=== PATIENT | female | born 1995 | race Caucasian/White ===

== ENCOUNTER 2019-02-06 12:50 | Emergency (ER) | payer BC, OTHER ==
--- NOTE | 2019-02-06 15:06 | RAD REPORT ---
EXAM DESCRIPTION: RAD - Shoulder Left 2 View - 02/06/2019 2:55 pm CLINICAL HISTORY: Fall, left shoulder pain COMPARISON: None. TECHNIQUE: Internal and external rotation views of the left shoulder were obtained. FINDINGS: There is no fracture or dislocation. AC joint is normal in appearance. No acute or suspici ous findings. IMPRESSION: Negative two-view left shoulder examination.
--- NOTE | 2019-02-06 15:07 | RAD REPORT ---
EXAM DESCRIPTION: RAD - Forearm Right - 02/06/2019 2:55 pm CLINICAL HISTORY: Fall, arm pain COMPARISON: None. FINDINGS: No fracture is identified. There is no dislocation or periosteal reaction noted. No foreign body or other soft tissue abnormality. IMPRESSION: Negative right forearm examination.
--- NOTE | 2019-02-06 15:29 | ER ---
Nurse's Notes [facility] Name: Hanna Olmos Age: 23 yrs Sex: Female : 1995 Arrival Date: 02/06/2019 Time: 12:52 Bed 26 Private MD: Diagnosis: Other sprain of left shoulder joint;Arm Strain Presentation: 02/06 13:00 Presenting complaint: Patient states: yesterday climbed in a window and fell while ch climbing in and hit the bath tub. pain to abel shoulders and elbows. c/o limited rom to R shoulder. Transition of care: patient was not received from another setting of care. Onset of symptoms was February 05, 2019 at 23:00. Risk Assessment: Do you want to hurt yourself or someone else? Patient reports no desire to harm self or others. Initial Sepsis Screen: Does the patient meet any 2 criteria? No. Patient's initial sepsis screen is negative. Does the patient have a suspected source of infection? No. Patient's initial sepsis screen is negative. Care prior to arrival: None. 13:00 Method Of Arrival: Ambulatory 13:00 Acuity: MJ 4 ch Triage Assessment: 13:02 General: Appears in no apparent distress. comfortable, Behavior is calm, cooperative, ch appropriate for age. Pain: Complains of pain in anterior aspect of right shoulder, posterior aspect of right shoulder, anterior aspect of left shoulder and posterior aspect of left shoulder Pain currently is 6 out of 10 on a pain scale. 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 - Social history:: Smoking status: Patient/guardian denies using tobacco. - Ebola Screening: : Patient negative for fever greater than or equal to 101.5 degrees Fahrenheit, and additional compatible Ebola Virus Disease symptoms Patient denies exposure to infectious person Patient denies travel to an Ebola-affected area in the 21 days before illness onset No symptoms or risks identified at this time. Screenin:33 Abuse screen: Denies threats or abuse. Denies injuries from another. Nutritional mg2 screening: No deficits noted. Tuberculosis screening: No symptoms or risk factors identified. Fall Risk Fall in past 12 months (25 points). Assessment: 13:32 General: Appears in no apparent distress. comfortable, Behavior is calm, cooperative. mg2 Pain: Complains of pain in right arm and posterior aspect of left shoulder. Neuro: Level of Consciousness is awake, alert, obeys commands, Oriented to person, place, time, situation. Cardiovascular: Capillary refill < 3 seconds Patient's skin is warm and dry. Respiratory: Airway is patent Respiratory effort is even, unlabored, Respiratory pattern is regular, symmetrical. GI: No signs and/or symptoms were reported involving the gastrointestinal system. : No signs and/or symptoms were reported regarding the genitourinary system. EENT: No signs and/or symptoms were reported regarding the EENT system. Derm: Skin is intact, is healthy with good turgor, Skin is pink, warm \T\ dry. normal. Musculoskeletal: Circulation, motion, and sensation intact. Capillary refill < 3 seconds, Range of motion: limited in left shoulder and right elbow. Vital Signs: 13:02 BP 130 / 90; Pulse 90; Resp 16; Temp 97.8; Pulse Ox 99% on R/A; Weight 68.04 kg; Height ch 5 ft. 4 in. (162.56 cm); Pain 5/10; 14:53 BP 124 / 97; Pulse 94; Resp 18; Pulse Ox 100% on R/A; mg2 15:36 BP 126 / 78; Pulse 90; Resp 18; Temp 98; Pulse Ox 100% on R/A; Pain 2/10; mg2 13:02 Body Mass Index 25.75 (68.04 kg, 162.56 cm) ED Course: 12:52 Patient arrived in ED. as 13:02 Triage completed. ch 13:04 Arm band placed on left wrist. Patient placed in an exam room, on a stretcher. 13:19 Joaquin Fong, GORDON is Primary Nurse. mg2 13:34 Patient has correct armband on for positive identification. mg2 13:34 No provider procedures requiring assistance completed. Patient did not have IV access mg2 during this emergency room visit. 13:38 [facility] 13:38 Byron Angel MD is Attending Physician. jmm 14:55 Forearm Right XRAY In Process Unspecified. EDMS 14:56 Shoulder Left (2 View) XRAY In Process Unspecified. EDMS 15:26 Al Wells MD is Referral Physician. mathew Administered Medications: No medications were administered Outcome: 15:28 Discharge ordered by . [facility] 15:37 Discharged to home ambulatory, with family. mg2 15:37 Condition: good 15:37 Discharge instructions given to patient, family, Instructed on discharge instructions, follow up and referral plans. medication usage, Demonstrated understanding of instructions, follow-up care, medications, Prescriptions given X 1. 15:37 Patient left the ED. mg2 Signatures: Dispatcher [employer] Ofelia Pompa, RN RN Dell Saul PA PA jmm Martinez, Amelia as Gardose, Michele, GORDON RN mg2 Corrections: (The following items were deleted from the chart) 13:04 13:02 Home Meds: None; [facility] 13:34 13:33 Fall Risk mg2 mg2
--- NOTE | 2019-02-06 15:29 | EDPHYS ---
Physician Documentation [facility] Name: Hanna Olmos Age: 23 yrs Sex: Female : 1995 Arrival Date: 02/06/2019 Time: 12:52 Bed 26 Private MD: ED Physician Byrno Angel HPI: 02/06 13:52 This 23 yrs old Female presents to ER via Ambulatory with complaints of Fall jmm Injury, Shoulder Pain, Arm Pain. 13:52 Details of fall: The patient fell from a height. Onset: The symptoms/episode jmm began/occurred acutely, at 00:30. The patient has not experienced similar symptoms in the past. This is a 23 year old female with no chronic medical conditions that presents to the ED with complaints of left shoulder pain and right forearm pain after falling into a bathroom from the outside window. Denies head injury, denies neck injury. . 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 - Social history:: Smoking status: Patient/guardian denies using tobacco. - Ebola Screening: : Patient negative for fever greater than or equal to 101.5 degrees Fahrenheit, and additional compatible Ebola Virus Disease symptoms Patient denies exposure to infectious person Patient denies travel to an Ebola-affected area in the 21 days before illness onset No symptoms or risks identified at this time. ROS: 13:52 Constitutional: Negative for fever, chills, and weight loss, Cardiovascular: Negative jmm for chest pain, palpitations, and edema, Respiratory: Negative for shortness of breath, cough, wheezing, and pleuritic chest pain. 13:52 Neck: Negative for pain with movement, pain at rest. 13:52 MS/extremity: Positive for injury or acute deformity, pain. 13:52 Neuro: Negative for headache. 13:52 All other systems are negative. Exam: 13:52 Constitutional: This is a well developed, well nourished patient who is awake, alert, jmm and in no acute distress. Head/Face: atraumatic. Eyes: EOMI, no conjunctival erythema appreciated ENT: Moist Mucus Membranes Neck: Trachea midline, Supple Chest/axilla: Normal chest wall appearance and motion. Cardiovascular: Regular rate and rhythm. No edema appreciated Respiratory: Normal respirations, no respiratory distress appreciated Abdomen/GI: Non distended, soft Back: Normal ROM Skin: General appearance color normal 13:52 Musculoskeletal/extremity: right proximal forearm TTP, full right laboratory immunologist, full radial pulse, compartments are soft, FROM appreciated against resistance. NVI. Left posterior shoulder is TTP, full left laboratory immunologist strength, compartments are soft, FROM appreciated against resistance, NVI. . 13:52 Skin: Appearance: Color: normal in color. 13:52 Neuro: Orientation: is normal, Mentation: is normal, Memory: is normal. 13:52 Psych: Behavior/mood is pleasant, cooperative. Vital Signs: 13:02 BP 130 / 90; Pulse 90; Resp 16; Temp 97.8; Pulse Ox 99% on R/A; Weight 68.04 kg; Height ch 5 ft. 4 in. (162.56 cm); Pain 5/10; 14:53 BP 124 / 97; Pulse 94; Resp 18; Pulse Ox 100% on R/A; mg2 15:36 BP 126 / 78; Pulse 90; Resp 18; Temp 98; Pulse Ox 100% on R/A; Pain 2/10; mg2 13:02 Body Mass Index 25.75 (68.04 kg, 162.56 cm) ch MDM: 13:51 Patient medically screened. [facility] 15:25 Data reviewed: vital signs, nurses notes. Counseling: I had a detailed discussion with mathew the patient and/or guardian regarding: the historical points, exam findings, and any diagnostic results supporting the discharge/admit diagnosis, radiology results, the need for outpatient follow up, to return to the emergency department if symptoms worsen or persist or if there are any questions or concerns that arise at home. 02/06 13:52 Order name: Forearm Right XRAY; Complete Time: 15:22 [facility] 02/06 13:52 Order name: Shoulder Left (2 View) XRAY; Complete Time: 15:22 [facility] Administered Medications: No medications were administered Disposition: 17:21 Co-signature as Attending Physician, Byron Angel MD. Disposition: 02/06/19 15:28 Discharged to Home. Impression: Other sprain of left shoulder joint, Arm Strain. - Condition is Stable. - Discharge Instructions: Muscle Strain, Shoulder Sprain. - Prescriptions for orphenadrine citrate 100 mg Oral Tablet Sustained Release - take 1 tablet by ORAL route 2 times per day As needed; 20 tablet. - Medication Reconciliation Form, Thank You Letter, Antibiotic Education, Prescription Opioid Use form. - Follow up: Al Wells MD; When: As needed; Reason: Recheck today's complaints, Continuance of care, Re-evaluation by your physician. Signatures: Dispatcher [employer] EDOfelia Kwong RN RN Dell Saul PA PA jmm Starr, Gregory, MD MD Joaquin Fong RN RN mg2 Corrections: (The following items were deleted from the chart) 13:04 13:02 Home Meds: None; [facility] 15:37 15:28 02/06/2019 15:28 Discharged to Home. Impression: Other sprain of left shoulder mg2 joint; Arm Strain. Condition is Stable. Forms are Medication Reconciliation Form, Thank You Letter, Antibiotic Education, Prescription Opioid Use. Follow up: Al Wells; When: As needed; Reason: Recheck today's complaints, Continuance of care, Re-evaluation by your physician. mathew
[2019-02-06 16:36] VITALS: O2SAT 100
[2019-02-06 16:38] VITALS: BP 126/78; TEMP 98
== END 2019-02-06 15:37 | disposition home or self-care (01) ==
LOC: ER 12:50
DX: S43.492A Other sprain of left shoulder joint, initial encounter (principal); S56.911A Strain of unspecified muscles, fascia and tendons at forearm level, right arm, initial encounter; W13.4XXA Fall from, out of or through window, initial encounter; Y93.89 Activity, other specified; Y92.9 Unspecified place or not applicable
CPT/HCPCS: 99283

== ENCOUNTER 2021-01-14 15:23 | Emergency (ER) | payer BC ==
[2021-01-14] MEDS ORDERED: IBUPROFEN 400 MG TAB ONE (15:59)
[2021-01-14] MEDS ORDERED: IBUPROFEN 200 MG TAB PO ONE (15:59)
[2021-01-14 16:06] LABS: Absolute Lymphocytes (CBC) 1.1 K/uL (0.7-4.9); Basophils % 0.1 % (0-1.3); Hematocrit 42.2 % (36.0-45.0); Lymphocytes % 9.7 % (15.3-44.8); MPV 7.9 fL (7.6-11.3); RBC Red Blood Cell Count 4.89 M/uL (3.86-4.86)
[2021-01-14 16:18] LABS: Potassium 3.8 mmol/L (3.5-5.1)
--- NOTE | 2021-01-14 16:27 | RAD REPORT ---
EXAM DESCRIPTION: RAD - Wrist Right 3 View - 01/14/2021 4:08 pm CLINICAL HISTORY: Right wrist pain FINDINGS: No fracture or dislocation is seen. If the patient continues to have symptoms to suggest a n occult fracture then a followup plain film series in 7 days would be recommended.
--- NOTE | 2021-01-14 17:36 | ER ---
Nurse's Notes [facility] Name: Hanna Olmos Age: 25 yrs Sex: Female : 1995 Arrival Date: 01/14/2021 Time: 15:23 Bed 11 [facility] MD: Diagnosis: Cellulitis of right upper limb Presentation: 01/14 15:29 Chief complaint: Patient states: "my wrist is hurting, I woke up with it hurting on aa5 Sunday". Pt denies injury to wrist. Coronavirus screen: At this time, the client does not indicate any symptoms associated with coronavirus-19. Ebola Screen: Patient negative for fever greater than or equal to 101.5 degrees Fahrenheit, and additional compatible Ebola Virus Disease symptoms. Initial Sepsis Screen: Does the patient meet any 2 criteria? HR > 90 bpm. Does the patient have a suspected source of infection? No. Patient's initial sepsis screen is negative. Risk Assessment: Do you want to hurt yourself or someone else? Patient reports no desire to harm self or others. Onset of symptoms was December 2020. 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 - Social history:: Smoking status: Patient denies any tobacco usage or history of. Screenin:15 Abuse screen: Denies threats or abuse. Nutritional screening: No deficits noted. vg1 Tuberculosis screening: No symptoms or risk factors identified. Fall Risk No fall in past 12 months (0 pts). No secondary diagnosis (0 pts). IV access (20 points). Ambulatory Aid- None/Bed Rest/Nurse Assist (0 pts). Gait- Normal/Bed Rest/Wheelchair (0 pts) Mental Status- Oriented to own ability (0 pts). Total Sharma Fall Scale indicates No Risk (0-24 pts). Assessment: 17:13 General: Appears in no apparent distress. comfortable, Behavior is calm, cooperative. vg1 Pain: Complains of pain in Right wrist/hand Pain currently is 2 out of 10 on a pain scale. at worst was 8 out of 10 on a pain scale. Pain began Sunday01/10/21. Neuro: Level of Consciousness is awake, alert, obeys commands, Oriented to person, place, time, situation. Cardiovascular: Patient's skin is warm and dry. Pulses are palpable in right radial artery and left radial artery. Respiratory: Airway is patent Respiratory effort is even, unlabored. GI: No signs and/or symptoms were reported involving the gastrointestinal system. : No signs and/or symptoms were reported regarding the genitourinary system. EENT: No signs and/or symptoms were reported regarding the EENT system. Derm: Skin is intact, Skin is red, Right thumb. Musculoskeletal: Swelling present in Right thumb/wrist. 17:36 Reassessment: pt up for d/c; awaiting for IV fluids to complete. vg1 18:19 Reassessment: Patient appears in no apparent distress at this time. Patient and/or vg1 family updated on plan of care and expected duration. Pain level reassessed. Patient is alert, oriented x 3, equal unlabored respirations, skin warm/dry/pink. Vital Signs: 15:29 BP 126 / 80; Pulse 120; Resp 18 S; Temp 100.7(TE); Pulse Ox 99% on R/A; Weight 69.4 kg; aa5 Height 5 ft. 5 in. (165.10 cm) (R); Pain 8/10; 17:13 BP 115 / 78; Pulse 115; Resp 16; Temp 99.8(O); Pulse Ox 99% ; vg1 18:18 BP 112 / 67; Pulse 89; Resp 16; Pulse Ox 98% ; vg1 15:29 Body Mass Index 25.46 (69.40 kg, 165.10 cm) aa5 ED Course: 15:23 Patient arrived in ED. am2 15:29 Arm band placed on. aa5 15:31 Triage completed. aa5 15:32 Ami Wood FNP-C [facility]. kb 15:32 Mil Chakraborty MD is Attending Physician. kb 15:35 First set of blood cultures drawn by me. aa5 15:45 Second set of blood cultures drawn by me. Initial lab(s) drawn, by me, sent to lab. aa5 Inserted saline lock: 20 gauge in right antecubital area, using aseptic technique. Blood collected. 16:08 Wrist Right 3 View XRAY In Process Unspecified. EDMS 17:08 Ariana Merchant, RN is Primary Nurse. vg1 17:15 Patient has correct armband on for positive identification. Call light in reach. vg1 18:19 No provider procedures requiring assistance completed. IV discontinued, intact, vg1 bleeding controlled, No redness/swelling at site. Pressure dressing applied. Administered Medications: 15:36 Drug: Ibuprofen 600 mg Route: PO; aa5 17:35 Follow up: Response: No adverse reaction; Temperature is decreased vg1 17:30 Drug: Bactrim (trimethoprim-sulfamethoxazole) (160 mg-800 mg (DS) 1 tablet Route: PO; vg1 18:18 Follow up: Response: No adverse reaction vg1 17:30 Drug: KeFLEX (cephalexin) 500 mg Route: PO; vg1 18:18 Follow up: Response: No adverse reaction vg1 17:35 Drug: NS 0.9% 1000 ml Route: IV; Rate: 1000 ml; Site: right antecubital; vg1 18:18 Follow up: IV Status: Completed infusion; IV Intake: 1000ml vg1 Intake: 18:18 IV: 1000ml; Total: 1000ml. vg1 Outcome: 17:35 Discharge ordered by . kb 18:19 Discharged to home ambulatory. vg1 18:19 Condition: stable 18:19 Discharge instructions given to patient, Instructed on discharge instructions, the need for admit, medication usage, Demonstrated understanding of instructions, follow-up care, medications, Prescriptions given X 2. 18:19 Patient left the ED. vg1 Signatures: Dispatcher [employer] EDMS Ami Wood, LAG SCREWER-C LAG SCREWER-CkMariia Tapia, RN RN aa5 Karen Morales am2 Ariana Merchant, RN RN vg1 Corrections: (The following items were deleted from the chart) 15:33 15:29 Initial Sepsis Screen: Does the patient meet any 2 criteria? No. Patient's aa5 initial sepsis screen is negative. Does the patient have a suspected source of infection? No. Patient's initial sepsis screen is negative. aa5 15:48 15:29 Acuity: MJ 4 aa5 aa5
--- NOTE | 2021-01-14 17:36 | EDPHYS ---
Physician Documentation [facility] Name: Hanna Olmos Age: 25 yrs Sex: Female : 1995 Arrival Date: 01/14/2021 Time: 15:23 Bed 11 Private MD: ED Physician Mil Chakraborty HPI: 01/14 23:03 This 25 yrs old Female presents to ER via Ambulatory with complaints of Wrist kb Injury. 23:03 The patient or guardian reports decreased range of motion, pain, swelling, tenderness. kb The complaints affect the right wrist diffusely. Context: The problem was sustained at home, resulted from an unknown cause. Onset: The symptoms/episode began/occurred 5 day(s) ago. Modifying factors: The symptoms are alleviated by nothing, the symptoms are aggravated by movement. Associated signs and symptoms: The patient has no apparent associated signs or symptoms. The patient has not experienced similar symptoms in the past. The patient has not recently seen a physician. 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 - Social history:: Smoking status: Patient denies any tobacco usage or history of. ROS: 23:01 Constitutional: Negative for fever, chills, and weight loss. kb 23:01 MS/extremity: Positive for ecchymosis, pain, swelling, tenderness, warmth, of the right wrist. 23:01 All other systems are negative. kb Exam: 23:01 Constitutional: This is a well developed, well nourished patient who is awake, alert, kb and in no acute distress. Head/Face: Normocephalic, atraumatic. ENT: Moist Mucous membranes Respiratory: Respirations even and unlabored. No increased work of breathing, no retractions or nasal flaring. Neuro: Awake and alert, GCS 15, oriented to person, place, time, and situation. Moves all extremities. Normal gait. Psych: Awake, alert, with orientation to person, place and time. Behavior, mood, and affect are within normal limits. 23:01 Musculoskeletal/extremity: Extremities: grossly normal except: noted in the right wrist: decreased ROM, pain, swelling, tenderness, ROM: limited active range of motion due to pain, in the right wrist, "skin feels tight with movement", Circulation is intact in all extremities. Sensation intact. 23:01 Skin: cellulitis, that is mild, on the right wrist. Vital Signs: 15:29 BP 126 / 80; Pulse 120; Resp 18 S; Temp 100.7(TE); Pulse Ox 99% on R/A; Weight 69.4 kg; aa5 Height 5 ft. 5 in. (165.10 cm) (R); Pain 8/10; 17:13 BP 115 / 78; Pulse 115; Resp 16; Temp 99.8(O); Pulse Ox 99% ; vg1 18:18 BP 112 / 67; Pulse 89; Resp 16; Pulse Ox 98% ; vg1 15:29 Body Mass Index 25.46 (69.40 kg, 165.10 cm) aa5 MDM: 15:32 Patient medically screened. 23:00 Data reviewed: vital signs, nurses notes. Data interpreted: Pulse oximetry: on room air kb is 98 %. Interpretation: normal. Counseling: I had a detailed discussion with the patient and/or guardian regarding: the historical points, exam findings, and any diagnostic results supporting the discharge/admit diagnosis, lab results, radiology results, the need for outpatient follow up, a family practitioner, a orthopedic surgeon, to return to the emergency department if symptoms worsen or persist or if there are any questions or concerns that arise at home. 23:00 Data reviewed: I have discussed the patient's presentation/case with the attending Emergency Department Physician;. 01/14 15:33 Order name: CBC with Diff; Complete Time: 16:31 kb 01/14 15:33 Order name: Basic Metabolic Panel; Complete Time: 16:21 kb 01/14 15:33 Order name: Sed Rate; Complete Time: 16:31 kb 01/14 15:33 Order name: CRP; Complete Time: 16:21 kb 01/14 15:33 Order name: Blood Culture Adult (2) 01/14 15:33 Order name: Wrist Right 3 View XRAY; Complete Time: 16:29 kb 01/14 15:33 Order name: IV Start; Complete Time: 15:47 kb Administered Medications: 15:36 Drug: Ibuprofen 600 mg Route: PO; aa5 17:35 Follow up: Response: No adverse reaction; Temperature is decreased vg1 17:30 Drug: Bactrim (trimethoprim-sulfamethoxazole) (160 mg-800 mg (DS) 1 tablet Route: PO; vg1 18:18 Follow up: Response: No adverse reaction vg1 17:30 Drug: KeFLEX (cephalexin) 500 mg Route: PO; vg1 18:18 Follow up: Response: No adverse reaction vg1 17:35 Drug: NS 0.9% 1000 ml Route: IV; Rate: 1000 ml; Site: right antecubital; vg1 18:18 Follow up: IV Status: Completed infusion; IV Intake: 1000ml vg1 Disposition: 01/15 08:07 Co-signature as Attending Physician, Mil Chakraborty MD I agree with the assessment and kdr plan of care. Disposition Summary: 01/14/21 17:35 Discharge Ordered Location: Home kb Condition: Stable kb Diagnosis - Cellulitis of right upper limb kb Followup: kb - With: Emergency Department - When: As needed - Reason: Worsening of condition Followup: kb - With: Private Physician - When: 2 - 3 days - Reason: Recheck today's complaints, Continuance of care, Re-evaluation by your physician Discharge Instructions: - Discharge Summary Sheet kb - Cellulitis, Adult, [id number] kb Forms: - Medication Reconciliation Form kb - Thank You Letter kb - Antibiotic Education kb - Prescription Opioid Use kb - Work release form eb Prescriptions: - Cephalexin 500 mg Oral Capsule - take 1 capsule by ORAL route every 8 hours for 10 days; 30 capsule; Refills: 0, kb Product Selection Permitted - Bactrim DS 800-160 mg Oral Tablet - take 1 tablet by ORAL route every 12 hours for 10 days; 20 tablet; Refills: 0, kb Product Selection Permitted Signatures: Dispatcher [employer] Ami Miles, DEVELOPER RELATIONS MANAGER-C ABUNDIO-Mil Douglas MD MD kdr Calderon, Audri, RN RN aa5 Ariana Merchant RN RN vg1
[2021-01-14] MEDS ORDERED: CEPHALEXIN 250 MG CAP ONE (17:54)
[2021-01-14] MEDS ORDERED: SMZ./TMP. 800/160 MG TABLET ONE (17:55)
[2021-01-14] MEDS ORDERED: NA CHLORIDE 0.9% 1,000 ML ONE (17:55)
[2021-01-14 19:00] VITALS: TEMP 99.8
[2021-01-14 19:02] VITALS: BP 112/67; O2SAT 98
== END 2021-01-14 18:19 | disposition home or self-care (01) ==
LOC: ER 15:23
DX: L03.113 Cellulitis of right upper limb (principal)
CPT/HCPCS: 87040 ×2; 85025; 80048; 36415; 85652; 86140; 73110; 96360; 99284; J7030